=== PATIENT | male | born 1960 | race Caucasian/White ===

== ENCOUNTER → 2016-07-31 | Outpatient (CLI) | payer MEDICARE, OTHER ==
[~2016-07-31] MED LIST: AFRIN15 M1; ASPIRIN CHEWABL81 MG PO; BRILINTA 90 MG90 MG PO; CRESTOR10 MG PO; FISH OIL 1,0001 EAC1 PO; LOPRESSOR 25 MG25 MG PO; LORTAB 7.5-3251 EACH PO; LYRICA50 MG PO; MELATONIN5 M2 PO; MIRTAZAPINE15 MG PO; NITROGLYCERIN0.4 MG SL; PREVACID30 MG PO; PROTONIX40 MG PO
== END ==
LOC: HEART 5 07:13
DX: R07.9 Chest pain, unspecified (principal)
CPT/HCPCS: 78452; A9502; J2785

== ENCOUNTER 2016-09-18 06:55 | Outpatient (CLI) | payer MEDICARE, OTHER ==
[~2016-09-18] VITALS: Ht 180.3 cm; Wt 88.5 kg
[2016-09-18 07:39] LABS: HEMOGLOBIN 16.8 gm/dl (14.0-17.5); RED BLOOD COUNT 5.7 M/UL (4.20-5.50); WHITE BLOOD COUNT 12.3 K/UL (4.5-11.0)
[2016-09-18 08:12] LABS: BUN/CREATININE RATIO 7 (0-10)
[2016-09-18] MEDS ORDERED: ASPIRIN CHEWABL81 MG PO (08:20)
[2016-09-18] MEDS ORDERED: FISH OIL 1,0001 EAC1 PO (08:21)
[2016-09-18] MEDS ORDERED: LORTAB 7.5-3251 EACH PO (08:21)
[2016-09-18] MEDS ORDERED: LOPRESSOR 25 MG25 MG PO (08:22)
[2016-09-18] MEDS ORDERED: LYRICA50 MG PO (08:22)
[2016-09-18] MEDS ORDERED: MIRTAZAPINE15 MG PO (08:22)
[2016-09-18] MEDS ORDERED: MELATONIN5 M2 PO (08:23)
[2016-09-18] MEDS ORDERED: PREVACID30 MG PO (08:23)
[2016-09-18] MEDS ORDERED: AFRIN15 M1 (08:23)
[2016-09-18 18:19] LABS: HEMOGLOBIN 15.8 gm/dl (14.0-17.5); RED BLOOD COUNT 5.22 M/UL (4.20-5.50)
[2016-09-18 18:21] LABS: WHITE BLOOD COUNT 7.9 K/UL (4.5-11.0)
[2016-09-18 18:35] LABS: BUN/CREATININE RATIO 8 (0-10)
[2016-09-19 03:19] LABS: HEMOGLOBIN 16.3 gm/dl (14.0-17.5); RED BLOOD COUNT 5.47 M/UL (4.20-5.50); WHITE BLOOD COUNT 9.4 K/UL (4.5-11.0)
[2016-09-19 03:49] LABS: BUN/CREATININE RATIO 9 (0-10)
--- NOTE | 2016-09-19 06:14 | NUR ---
Report given to oncoming shift.
[2016-09-19] MEDS ORDERED: CRESTOR10 MG PO (09:35)
[2016-09-19] MEDS ORDERED: BRILINTA 90 MG90 MG PO (09:37)
[2016-09-19] MEDS ORDERED: NITROGLYCERIN0.4 MG SL (09:38)
[2016-09-19] MEDS ORDERED: PROTONIX40 MG PO (09:45)
== END 2016-09-19 09:30 | disposition home or self-care (01) ==
LOC: CATH 06:55 → CCU 10:29 → CATH 09-19 09:30
PROVIDERS: Internal Medicine
DX: I25.119 Atherosclerotic heart disease of native coronary artery with unspecified angina pectoris (principal); I10 Essential (primary) hypertension; R94.39 Abnormal result of other cardiovascular function study; R07.9 Chest pain, unspecified; E78.5 Hyperlipidemia, unspecified; E11.9 Type 2 diabetes mellitus without complications; K21.9 Gastro-esophageal reflux disease without esophagitis; F41.9 Anxiety disorder, unspecified; N42.9 Disorder of prostate, unspecified; F17.200 Nicotine dependence, unspecified, uncomplicated; Z86.11 Personal history of tuberculosis; Z79.82 Long term (current) use of aspirin; Z79.899 Other long term (current) drug therapy
CPT/HCPCS: 36415; 80048; 82550; 82553; 84484; 85025; 85027; 85347; 85610; 85730; 93005; 93571; 93572; C1725; C1769; C1874; C1887; C1894; C9600; J0153; J0583; J1644; J2250; J3010; J7030; Q9963

== ENCOUNTER → 2020-09-29 | Outpatient (CLI) | payer MEDICARE | LOC: HEART 5 07:57 | DX: I25.10 Atherosclerotic heart disease of native coronary artery without angina pectoris (principal); I11.9 Hypertensive heart disease without heart failure | CPT/HCPCS: 93306 ==

== ENCOUNTER → 2021-05-23 | Outpatient (CLI) | payer MEDICARE | LOC: HEART 5 08:48 | DX: R94.31 Abnormal electrocardiogram [ECG] [EKG] (principal); I25.10 Atherosclerotic heart disease of native coronary artery without angina pectoris | CPT/HCPCS: 78452; A9502; J2785 ==